=== PATIENT | female | born 1940 | race Caucasian/White ===

== ENCOUNTER 2023-05-05 10:01 | Inpatient (IN) | payer MEDICARE ==
[~2023-05-05] VITALS: Ht 157.5 cm; Wt 82.8 kg
[2023-05-05 13:30] VITALS: BP 148/67; TEMP 97.7; O2SAT 96
[2023-05-05] MEDS ORDERED: GLUCAGON INJ 1MG VIAL SC PRN (14:20)
[2023-05-05] MEDS ORDERED: GLUCOSE 4GM CHEW TABLET PO PRN (14:20)
[2023-05-05] MEDS ORDERED: oxyCODONE 5MG TAB PO PRN (14:20)
[2023-05-05] MEDS ORDERED: BISACODYL 10MG SUPP PR PRN (14:20)
[2023-05-05] MEDS ORDERED: DEXTROSE 50% 50ML SYRINGE IV PRN (14:20)
[2023-05-05] MEDS ORDERED: ACETAMINOPHEN 500 MG TAB PO SCH (16:00)
[2023-05-05] MEDS ORDERED: PACE200T PO (16:39)
[2023-05-05] MEDS ORDERED: APAP325T4 PO (16:39)
[2023-05-05] MEDS ORDERED: MELA10SU3 SL (16:39)
[2023-05-05] MEDS ORDERED: DOCU5LIQ PO (16:39)
[2023-05-05] MEDS ORDERED: METO50TA7 PO (16:39)
[2023-05-05] MEDS ORDERED: METO75TA PO (16:39)
[2023-05-05] MEDS ORDERED: ELIQ5TAB PO (16:39)
[2023-05-05] MEDS ORDERED: SENN-85 PO (16:39)
[2023-05-05] MEDS ORDERED: MOM30SS2 PO (16:39)
[2023-05-05] MEDS ORDERED: OXYC-517 PO (16:39)
[2023-05-05] MEDS ORDERED: FURO20TA2 PO (16:48)
[2023-05-05] MEDS ORDERED: HOME MED LIST COMPLETE! XX SCH (16:50)
[2023-05-05] MEDS ORDERED: oxyCODONE 5MG TAB PO ONE (17:00)
[2023-05-05] MEDS: DICLOFENAC EPOLAMINE 1.3% PATCH TOP SCH (17:07)
[2023-05-05] MEDS: LIDOCAINE 5% (LIDODERM) PATCH TD SCH (17:07)
[2023-05-05] MEDS: INSULIN LISPRO (NovoLOG) PER UNIT SC SCH (17:10)
[2023-05-05] MEDS: FUROSEMIDE 20 MG TAB PO SCH (18:32)
[2023-05-05] MEDS: GABAPENTIN 100 MG CAP PO SCH ×2 (18:32→21:43)
[2023-05-05] MEDS: ACETAMINOPHEN 325MG/10.15ML UDC PO SCH ×2 (18:32→21:00)
[2023-05-05] MEDS: REMEDY PHYTOPLEX Z-GUARD PASTE 113GM TUBE (FROM STOREROOM PRODUCT) TOP SCH ×2 (18:37→21:00)
[2023-05-05 20:00] VITALS: BP 112/56; TEMP 97.7; O2SAT 94
[2023-05-05] MEDS ORDERED: DOCUSATE SODIUM 100MG CAPSULE PO SCH (21:00)
[2023-05-05] MEDS ORDERED: INSULIN LISPRO (NovoLOG) PER UNIT SC SCH (21:00)
[2023-05-05] MEDS ORDERED: SENNA 8.6 MG TAB (SENOKOT) PO SCH (21:00)
[2023-05-05] MEDS: METOPROLOL TART 25 MG TABLET PO SCH (21:42)
[2023-05-05] MEDS: APIXABAN 5 MG TAB (ELIQUIS) PO SCH (21:43)
[2023-05-05] MEDS: traZODone 25MG PER 1/2 TABLET PO SCH (21:43)
[2023-05-05] MEDS: PANTOPRAZOLE 40MG TAB (PROTONIX) PO SCH (21:43)
[2023-05-06] MEDS: DICLOFENAC EPOLAMINE 1.3% PATCH TOP SCH ×2 (06:25→17:44)
[2023-05-06] MEDS: oxyCODONE 5MG TAB PO SCH ×3 (06:26→15:39)
[2023-05-06 06:55] VITALS: BP 122/60; TEMP 97.7; O2SAT 96
[2023-05-06 07:17] LABS: BASO # 0.1 10^3/uL (0.0-0.2); BASO % 0.8 % (0.0-1.0); EOS # 0.4 10^3/uL (0.0-0.5); EOS % 5.7 % (0.0-3.0); HEMATOCRIT 28.1 % (36.0-47.0); HEMOGLOBIN 9.3 g/dl (12.0-15.5); LYMPH % 16.2 % (24.0-44.0); MEAN CORPUSCULAR HEMOGLOBIN 33.3 pg (27.0-33.0); MEAN CORPUSCULAR HGB CONC 33.1 g/dl (32.0-36.5); MEAN CORPUSCULAR VOLUME 100.7 fl (80.0-96.0); MONO # 0.8 10^3/uL (0.0-0.8); MONO % 13.4 % (2.0-8.0); NEUTROPHILS # 3.9 10^3/uL (1.5-8.5); NEUTROPHILS % 63.3 % (36.0-66.0); PLATELET COUNT, AUTOMATED 286 10^3/uL (150-450); RED BLOOD COUNT 2.79 10^6/uL (4.00-5.40); WHITE BLOOD COUNT 6.2 10^3/uL (4.0-10.0)
[2023-05-06 07:30] LABS: ALBUMIN 1.7 G/DL (3.2-5.2); ALKALINE PHOSPHATASE 185 U/L (46-116); ALT/SGPT < 9 U/L (7.0-40); AST/SGOT 24 U/L (<34); BILIRUBIN,TOTAL 1.5 MG/DL (0.3-1.2); BLOOD UREA NITROGEN 10 MG/DL (9-23); CALCIUM LEVEL 6.7 MG/DL (8.3-10.6); CARBON DIOXIDE LEVEL 29 MMOL/L (20-31); CHLORIDE LEVEL 96 MMOL/L (98-107); CREATININE FOR GFR 0.63 MG/DL (0.55-1.30); GLOMERULAR FILTRATION RATE > 60.0 (>32); GLUCOSE, FASTING 87 MG/DL (74-106); POTASSIUM SERUM 3.7 MMOL/L (3.5-5.1); SODIUM LEVEL 131 MMOL/L (136-145); TOTAL PROTEIN 4.3 G/DL (5.7-8.2)
[2023-05-06] MEDS: INSULIN LISPRO (NovoLOG) PER UNIT SC SCH (07:30)
[2023-05-06] MEDS ORDERED: FUROSEMIDE 20 MG TAB PO SCH (09:00)
[2023-05-06] MEDS: GABAPENTIN 100 MG CAP PO SCH ×3 (09:15→21:05)
[2023-05-06] MEDS: AMIODARONE 200 MG TAB (PACERONE) PO SCH (09:15)
[2023-05-06] MEDS: PANTOPRAZOLE 40MG TAB (PROTONIX) PO SCH ×2 (09:15→21:04)
[2023-05-06] MEDS: APIXABAN 5 MG TAB (ELIQUIS) PO SCH ×2 (09:15→21:04)
[2023-05-06] MEDS: ACETAMINOPHEN 325MG/10.15ML UDC PO SCH ×4 (09:15→21:04)
[2023-05-06] MEDS: METOPROLOL TART 50 MG TAB PO SCH (09:16)
[2023-05-06] MEDS: FUROSEMIDE 20 MG TAB PO SCH ×2 (09:16→17:42)
[2023-05-06] MEDS: REMEDY PHYTOPLEX Z-GUARD PASTE 113GM TUBE (FROM STOREROOM PRODUCT) TOP SCH ×4 (09:18→21:00)
[2023-05-06] MEDS: LIDOCAINE 5% (LIDODERM) PATCH TD SCH (09:18)
[2023-05-06 14:00] VITALS: BP 100/51; TEMP 98.5; O2SAT 93
[2023-05-06 19:28] VITALS: BP 104/55; TEMP 97.6; O2SAT 95
[2023-05-06] MEDS: METOPROLOL TART 25 MG TABLET PO SCH (21:00)
[2023-05-06] MEDS: RAMELTEON 8 MG TAB (ROZEREM) PO PRN (21:04)
[2023-05-06] MEDS: traZODone 25MG PER 1/2 TABLET PO SCH (21:04)
[2023-05-07 05:17] VITALS: BP 127/59; TEMP 97.2; O2SAT 97
[2023-05-07] MEDS: DICLOFENAC EPOLAMINE 1.3% PATCH TOP SCH ×2 (06:02→18:12)
[2023-05-07] MEDS: oxyCODONE 5MG TAB PO SCH ×3 (08:08→16:16)
[2023-05-07] MEDS: APIXABAN 5 MG TAB (ELIQUIS) PO SCH ×2 (08:09→20:46)
[2023-05-07] MEDS: GABAPENTIN 100 MG CAP PO SCH ×3 (08:09→20:46)
[2023-05-07] MEDS: FUROSEMIDE 20 MG TAB PO SCH ×2 (08:09→16:16)
[2023-05-07] MEDS: PANTOPRAZOLE 40MG TAB (PROTONIX) PO SCH ×2 (08:10→20:47)
[2023-05-07] MEDS: AMIODARONE 200 MG TAB (PACERONE) PO SCH (08:10)
[2023-05-07] MEDS: METOPROLOL TART 50 MG TAB PO SCH (08:11)
[2023-05-07] MEDS: ACETAMINOPHEN 325MG/10.15ML UDC PO SCH ×4 (08:11→20:48)
[2023-05-07] MEDS: LIDOCAINE 5% (LIDODERM) PATCH TD SCH (08:12)
[2023-05-07] MEDS: REMEDY PHYTOPLEX Z-GUARD PASTE 113GM TUBE (FROM STOREROOM PRODUCT) TOP SCH ×4 (08:12→21:00)
[2023-05-07 14:00] VITALS: BP 113/56; TEMP 99.1; O2SAT 96
[2023-05-07] MEDS: CALCIUM CARBONATE 500 MG CHEW U/D PO PRN (16:36)
[2023-05-07] MEDS ORDERED: MOM 30ML SUSPENSION UDC PO ONE (16:55)
[2023-05-07 20:00] VITALS: BP 120/80; TEMP 98.7; O2SAT 94
[2023-05-07] MEDS ORDERED: SIMETHICONE 80MG CHEW TAB PO ONE (20:00)
[2023-05-07] MEDS: traZODone 25MG PER 1/2 TABLET PO SCH (20:46)
[2023-05-07] MEDS: METOPROLOL TART 25 MG TABLET PO SCH (20:47)
[2023-05-07] MEDS: RAMELTEON 8 MG TAB (ROZEREM) PO PRN (20:50)
[2023-05-08] MEDS: DICLOFENAC EPOLAMINE 1.3% PATCH TOP SCH ×2 (05:29→18:14)
[2023-05-08 06:00] VITALS: BP 115/59; TEMP 97.5; O2SAT 95
[2023-05-08] MEDS: oxyCODONE 5MG TAB PO SCH ×3 (06:35→14:07)
[2023-05-08] MEDS: FUROSEMIDE 20 MG TAB PO SCH ×2 (08:55→18:13)
[2023-05-08] MEDS: APIXABAN 5 MG TAB (ELIQUIS) PO SCH ×2 (08:55→21:36)
[2023-05-08] MEDS: METOPROLOL TART 50 MG TAB PO SCH (08:55)
[2023-05-08] MEDS: GABAPENTIN 100 MG CAP PO SCH ×3 (08:56→21:36)
[2023-05-08] MEDS: AMIODARONE 200 MG TAB (PACERONE) PO SCH (08:56)
[2023-05-08] MEDS: ACETAMINOPHEN 325MG/10.15ML UDC PO SCH ×4 (08:56→21:36)
[2023-05-08] MEDS: PANTOPRAZOLE 40MG TAB (PROTONIX) PO SCH ×2 (08:56→21:36)
[2023-05-08] MEDS: REMEDY PHYTOPLEX Z-GUARD PASTE 113GM TUBE (FROM STOREROOM PRODUCT) TOP SCH ×4 (08:57→21:37)
[2023-05-08] MEDS: LIDOCAINE 5% (LIDODERM) PATCH TD SCH (08:57)
[2023-05-08] MEDS ORDERED: MIRALAX *UNIT DOSE* 17GM PACKET PO PRN (12:15)
[2023-05-08 14:00] VITALS: BP 117/56; TEMP 98.1; O2SAT 95
[2023-05-08 20:00] VITALS: BP 99/53; TEMP 97.8; O2SAT 95
[2023-05-08] MEDS: METOPROLOL TART 25 MG TABLET PO SCH (21:00)
[2023-05-08] MEDS: RAMELTEON 8 MG TAB (ROZEREM) PO PRN (21:36)
[2023-05-08] MEDS: traZODone 25MG PER 1/2 TABLET PO SCH (21:36)
[2023-05-08] MEDS: SENNA 8.6 MG TAB (SENOKOT) PO SCH (21:36)
[2023-05-08] MEDS: DOCUSATE SOD LIQ 100MG/10ML UDC PO SCH (21:37)
[2023-05-09] MEDS: DICLOFENAC EPOLAMINE 1.3% PATCH TOP SCH ×2 (05:41→18:15)
[2023-05-09 06:00] VITALS: BP 126/61; TEMP 97.6; O2SAT 95
[2023-05-09] MEDS: oxyCODONE 5MG TAB PO SCH ×3 (06:45→16:02)
[2023-05-09] MEDS: PANTOPRAZOLE 40MG TAB (PROTONIX) PO SCH ×2 (09:10→20:45)
[2023-05-09] MEDS: DOCUSATE SOD LIQ 100MG/10ML UDC PO SCH ×2 (09:10→20:44)
[2023-05-09] MEDS: AMIODARONE 200 MG TAB (PACERONE) PO SCH (09:10)
[2023-05-09] MEDS: GABAPENTIN 100 MG CAP PO SCH ×3 (09:10→20:45)
[2023-05-09] MEDS: APIXABAN 5 MG TAB (ELIQUIS) PO SCH ×2 (09:10→20:45)
[2023-05-09] MEDS: FUROSEMIDE 20 MG TAB PO SCH (09:10)
[2023-05-09] MEDS: METOPROLOL TART 50 MG TAB PO SCH (09:11)
[2023-05-09] MEDS: ACETAMINOPHEN 325MG/10.15ML UDC PO SCH ×4 (09:11→20:44)
[2023-05-09] MEDS: REMEDY PHYTOPLEX Z-GUARD PASTE 113GM TUBE (FROM STOREROOM PRODUCT) TOP SCH ×4 (09:12→20:45)
[2023-05-09] MEDS: LIDOCAINE 5% (LIDODERM) PATCH TD SCH (09:12)
[2023-05-09 13:19] LABS: BASO # 0.1 10^3/uL (0.0-0.2); BASO % 0.7 % (0.0-1.0); EOS # 0.4 10^3/uL (0.0-0.5); EOS % 5.7 % (0.0-3.0); HEMATOCRIT 29.7 % (36.0-47.0); HEMOGLOBIN 9.7 g/dl (12.0-15.5); LYMPH # 1.1 10^3/uL (1.5-5.0); LYMPH % 14.5 % (24.0-44.0); MEAN CORPUSCULAR HEMOGLOBIN 33.4 pg (27.0-33.0); MEAN CORPUSCULAR HGB CONC 32.7 g/dl (32.0-36.5); MEAN CORPUSCULAR VOLUME 102.4 fl (80.0-96.0); MONO # 0.8 10^3/uL (0.0-0.8); MONO % 11.3 % (2.0-8.0); NEUTROPHILS # 4.9 10^3/uL (1.5-8.5); NEUTROPHILS % 67.3 % (36.0-66.0); PLATELET COUNT, AUTOMATED 353 10^3/uL (150-450); WHITE BLOOD COUNT 7.3 10^3/uL (4.0-10.0)
[2023-05-09 13:39] LABS: ALBUMIN 1.5 G/DL (3.2-5.2); ALKALINE PHOSPHATASE 196 U/L (46-116); ALT/SGPT < 9 U/L (7.0-40); AST/SGOT 29 U/L (<34); BILIRUBIN,TOTAL 0.9 MG/DL (0.3-1.2); BLOOD UREA NITROGEN 12 MG/DL (9-23); CALCIUM LEVEL 6.9 MG/DL (8.3-10.6); CARBON DIOXIDE LEVEL 30 MMOL/L (20-31); CHLORIDE LEVEL 94 MMOL/L (98-107); CREATININE FOR GFR 0.63 MG/DL (0.55-1.30); GLOMERULAR FILTRATION RATE > 60.0 (>32); GLUCOSE, FASTING 111 MG/DL (74-106); POTASSIUM SERUM 3.6 MMOL/L (3.5-5.1); SODIUM LEVEL 128 MMOL/L (136-145); TOTAL PROTEIN 4.2 G/DL (5.7-8.2)
[2023-05-09 13:41] LABS: ERYTHROCYTE SEDIMENTATION RATE 60 mm/hr (0-30)
[2023-05-09 14:00] VITALS: TEMP 98.4; O2SAT 96
[2023-05-09 20:00] VITALS: BP 106/51; TEMP 98.2; O2SAT 94
[2023-05-09] MEDS: METOPROLOL TART 25 MG TABLET PO SCH (20:45)
[2023-05-09] MEDS: traZODone 25MG PER 1/2 TABLET PO SCH (20:45)
[2023-05-09] MEDS: SENNA 8.6 MG TAB (SENOKOT) PO SCH (20:45)
[2023-05-10 06:00] VITALS: BP 129/60; TEMP 98; O2SAT 95
[2023-05-10] MEDS: oxyCODONE 5MG TAB PO SCH ×3 (06:28→21:08)
[2023-05-10] MEDS: DICLOFENAC EPOLAMINE 1.3% PATCH TOP SCH ×2 (06:28→18:00)
[2023-05-10] MEDS: DOCUSATE SOD LIQ 100MG/10ML UDC PO SCH ×2 (09:33→20:57)
[2023-05-10] MEDS: APIXABAN 5 MG TAB (ELIQUIS) PO SCH ×2 (09:34→21:08)
[2023-05-10] MEDS: ACETAMINOPHEN 325MG/10.15ML UDC PO SCH ×4 (09:34→21:09)
[2023-05-10] MEDS: GABAPENTIN 100 MG CAP PO SCH ×3 (09:34→21:07)
[2023-05-10] MEDS: LIDOCAINE 5% (LIDODERM) PATCH TD SCH (09:34)
[2023-05-10] MEDS: PANTOPRAZOLE 40MG TAB (PROTONIX) PO SCH ×2 (09:35→21:08)
[2023-05-10] MEDS: REMEDY PHYTOPLEX Z-GUARD PASTE 113GM TUBE (FROM STOREROOM PRODUCT) TOP SCH ×4 (09:35→21:09)
[2023-05-10] MEDS: METOPROLOL TART 50 MG TAB PO SCH (09:35)
[2023-05-10] MEDS: AMIODARONE 200 MG TAB (PACERONE) PO SCH (09:35)
[2023-05-10] MEDS ORDERED: VARIBAR NECTAR 40% w/v 240ML SUSP BTL As Ordered ONE (13:47)
[2023-05-10] MEDS ORDERED: VARIBAR PUDDING 40% w/v 230ML TUBE As Ordered ONE (13:47)
[2023-05-10] MEDS ORDERED: E-Z-PAQUE 96% w/w SUSP 176GM BTL As Ordered ONE (13:48)
[2023-05-10] MEDS ORDERED: BARIUM SULFATE 700 MG TABLET (E-Z-DISK) As Ordered ONE (13:48)
[2023-05-10] MEDS ORDERED: PILL CUTTER 1 EACH XX PRN (13:55)
[2023-05-10 14:00] VITALS: BP 132/62; TEMP 97.7; O2SAT 97
[2023-05-10] MEDS ORDERED: FLEET ENEMA PR ONE (15:45)
[2023-05-10] MEDS: MIRALAX *UNIT DOSE* 17GM PACKET PO SCH (16:41)
[2023-05-10 16:42] LABS: BLOOD UREA NITROGEN 12 MG/DL (9-23); CALCIUM LEVEL 6.9 MG/DL (8.3-10.6); CARBON DIOXIDE LEVEL 31 MMOL/L (20-31); CHLORIDE LEVEL 91 MMOL/L (98-107); CREATININE FOR GFR 0.63 MG/DL (0.55-1.30); GLOMERULAR FILTRATION RATE > 60.0 (>32); GLUCOSE, FASTING 103 MG/DL (74-106); POTASSIUM SERUM 4.1 MMOL/L (3.5-5.1); SODIUM LEVEL 124 MMOL/L (136-145)
[2023-05-10] MEDS: SODIUM CHLORIDE 1 GM TAB PO SCH (18:00)
[2023-05-10 20:00] VITALS: BP 130/61; TEMP 98.1; O2SAT 97
[2023-05-10] MEDS: SENNA 8.6 MG TAB (SENOKOT) PO SCH (20:57)
[2023-05-10] MEDS: METOPROLOL TART 25 MG TABLET PO SCH (21:00)
[2023-05-10 21:20] VITALS: BP 108/50
[2023-05-11 06:00] VITALS: BP 137/64; TEMP 97.7; O2SAT 97
[2023-05-11] MEDS: DICLOFENAC EPOLAMINE 1.3% PATCH TOP SCH ×2 (06:22→17:46)
[2023-05-11] MEDS: oxyCODONE 5MG TAB PO SCH ×3 (06:22→20:45)
[2023-05-11 07:26] LABS: BLOOD UREA NITROGEN 11 MG/DL (9-23); CALCIUM LEVEL 7.2 MG/DL (8.3-10.6); CARBON DIOXIDE LEVEL 32 MMOL/L (20-31); CHLORIDE LEVEL 92 MMOL/L (98-107); CREATININE FOR GFR 0.59 MG/DL (0.55-1.30); GLOMERULAR FILTRATION RATE > 60.0 (>32); GLUCOSE, FASTING 78 MG/DL (74-106); POTASSIUM SERUM 4.4 MMOL/L (3.5-5.1); SODIUM LEVEL 127 MMOL/L (136-145)
[2023-05-11] MEDS: AMIODARONE 200 MG TAB (PACERONE) PO SCH (08:05)
[2023-05-11] MEDS: APIXABAN 5 MG TAB (ELIQUIS) PO SCH ×2 (08:05→20:46)
[2023-05-11] MEDS: METOPROLOL TART 50 MG TAB PO SCH (08:05)
[2023-05-11] MEDS: PANTOPRAZOLE 40MG TAB (PROTONIX) PO SCH (08:05)
[2023-05-11] MEDS: SODIUM CHLORIDE 1 GM TAB PO SCH (08:05)
[2023-05-11] MEDS: GABAPENTIN 100 MG CAP PO SCH ×3 (08:06→20:44)
[2023-05-11] MEDS: LIDOCAINE 5% (LIDODERM) PATCH TD SCH (08:06)
[2023-05-11] MEDS: REMEDY PHYTOPLEX Z-GUARD PASTE 113GM TUBE (FROM STOREROOM PRODUCT) TOP SCH ×4 (08:07→20:46)
[2023-05-11] MEDS: ACETAMINOPHEN 325MG/10.15ML UDC PO SCH ×4 (08:07→20:43)
[2023-05-11] MEDS: MIRALAX *UNIT DOSE* 17GM PACKET PO SCH (08:08)
[2023-05-11] MEDS: DOCUSATE SOD LIQ 100MG/10ML UDC PO SCH ×2 (08:08→20:43)
[2023-05-11] MEDS ORDERED: TOLVAPTAN 15 MG TAB (SAMSCA) PO ONE (13:00)
[2023-05-11 14:00] VITALS: BP 126/53; TEMP 98; O2SAT 96
[2023-05-11] MEDS: SIMETHICONE 80MG CHEW TAB PO SCH ×2 (17:45→20:45)
[2023-05-11 20:00] VITALS: BP 117/59; TEMP 97.9; O2SAT 95
[2023-05-11] MEDS: OMEPRAZOLE 20MG CAP PO SCH (20:44)
[2023-05-11] MEDS: METOPROLOL TART 25 MG TABLET PO SCH (20:46)
[2023-05-11] MEDS: SENNA 8.6 MG TAB (SENOKOT) PO SCH (20:46)
[2023-05-12 05:35] VITALS: BP 142/64; TEMP 98.4; O2SAT 96
[2023-05-12] MEDS: DICLOFENAC EPOLAMINE 1.3% PATCH TOP SCH ×2 (06:39→17:03)
[2023-05-12] MEDS: oxyCODONE 5MG TAB PO SCH ×3 (06:40→21:58)
[2023-05-12] MEDS: ACETAMINOPHEN 325MG/10.15ML UDC PO SCH ×4 (09:06→21:59)
[2023-05-12] MEDS: APIXABAN 5 MG TAB (ELIQUIS) PO SCH ×2 (09:06→21:59)
[2023-05-12] MEDS: LIDOCAINE 5% (LIDODERM) PATCH TD SCH (09:06)
[2023-05-12] MEDS: AMIODARONE 200 MG TAB (PACERONE) PO SCH (09:06)
[2023-05-12] MEDS: DOCUSATE SOD LIQ 100MG/10ML UDC PO SCH ×2 (09:06→22:00)
[2023-05-12] MEDS: SIMETHICONE 80MG CHEW TAB PO SCH ×3 (09:06→21:59)
[2023-05-12] MEDS: MIRALAX *UNIT DOSE* 17GM PACKET PO SCH (09:06)
[2023-05-12] MEDS: GABAPENTIN 100 MG CAP PO SCH ×3 (09:07→22:00)
[2023-05-12] MEDS: METOPROLOL TART 50 MG TAB PO SCH (09:07)
[2023-05-12] MEDS: OMEPRAZOLE 20MG CAP PO SCH ×2 (09:07→22:00)
[2023-05-12] MEDS: REMEDY PHYTOPLEX Z-GUARD PASTE 113GM TUBE (FROM STOREROOM PRODUCT) TOP SCH ×4 (09:07→22:00)
[2023-05-12 09:21] LABS: BLOOD UREA NITROGEN 11 MG/DL (9-23); CALCIUM LEVEL 6.9 MG/DL (8.3-10.6); CARBON DIOXIDE LEVEL 29 MMOL/L (20-31); CHLORIDE LEVEL 93 MMOL/L (98-107); GLOMERULAR FILTRATION RATE > 60.0 (>32); GLUCOSE, FASTING 114 MG/DL (74-106); POTASSIUM SERUM 4.1 MMOL/L (3.5-5.1); SODIUM LEVEL 127 MMOL/L (136-145)
[2023-05-12] MEDS: TORSEMIDE 20 MG TAB PO SCH (12:11)
[2023-05-12 14:00] VITALS: BP 131/63; TEMP 97.5; O2SAT 97
[2023-05-12 20:00] VITALS: BP 125/57; TEMP 98.1; O2SAT 96
[2023-05-12] MEDS: METOPROLOL TART 25 MG TABLET PO SCH (21:59)
[2023-05-12] MEDS: SENNA 8.6 MG TAB (SENOKOT) PO SCH (21:59)
[2023-05-13] MEDS: REMEDY PHYTOPLEX Z-GUARD PASTE 113GM TUBE (FROM STOREROOM PRODUCT) TOP SCH ×6 (01:00→20:26)
[2023-05-13] MEDS: DICLOFENAC EPOLAMINE 1.3% PATCH TOP SCH ×2 (05:06→18:08)
[2023-05-13 06:11] VITALS: BP 137/65; TEMP 98.4; O2SAT 94
[2023-05-13] MEDS: oxyCODONE 5MG TAB PO SCH ×3 (06:29→20:31)
[2023-05-13 06:55] LABS: BASO # 0.1 10^3/uL (0.0-0.2); BASO % 0.7 % (0.0-1.0); EOS # 0.3 10^3/uL (0.0-0.5); EOS % 3.6 % (0.0-3.0); HEMATOCRIT 31.5 % (36.0-47.0); HEMOGLOBIN 10.2 g/dl (12.0-15.5); LYMPH # 1.6 10^3/uL (1.5-5.0); LYMPH % 17.8 % (24.0-44.0); MEAN CORPUSCULAR HEMOGLOBIN 32.7 pg (27.0-33.0); MEAN CORPUSCULAR HGB CONC 32.4 g/dl (32.0-36.5); MONO % 11.6 % (2.0-8.0); NEUTROPHILS # 5.7 10^3/uL (1.5-8.5); NEUTROPHILS % 65.5 % (36.0-66.0); PLATELET COUNT, AUTOMATED 439 10^3/uL (150-450); RED BLOOD COUNT 3.12 10^6/uL (4.00-5.40); WHITE BLOOD COUNT 8.7 10^3/uL (4.0-10.0)
[2023-05-13 07:34] LABS: BLOOD UREA NITROGEN 11 MG/DL (9-23); CALCIUM LEVEL 6.7 MG/DL (8.3-10.6); CARBON DIOXIDE LEVEL 32 MMOL/L (20-31); CHLORIDE LEVEL 96 MMOL/L (98-107); CREATININE FOR GFR 0.65 MG/DL (0.55-1.30); GLOMERULAR FILTRATION RATE > 60.0 (>32); GLUCOSE, FASTING 77 MG/DL (74-106); SODIUM LEVEL 130 MMOL/L (136-145)
[2023-05-13] MEDS: DOCUSATE SOD LIQ 100MG/10ML UDC PO SCH ×2 (09:00→20:15)
[2023-05-13] MEDS: MIRALAX *UNIT DOSE* 17GM PACKET PO SCH (09:00)
[2023-05-13] MEDS: GABAPENTIN 100 MG CAP PO SCH ×3 (09:38→20:24)
[2023-05-13] MEDS: OMEPRAZOLE 20MG CAP PO SCH ×2 (09:38→20:25)
[2023-05-13] MEDS: APIXABAN 5 MG TAB (ELIQUIS) PO SCH ×2 (09:38→20:26)
[2023-05-13] MEDS: ACETAMINOPHEN 325MG/10.15ML UDC PO SCH (09:38)
[2023-05-13] MEDS: SIMETHICONE 80MG CHEW TAB PO SCH ×3 (09:38→20:25)
[2023-05-13] MEDS: LIDOCAINE 5% (LIDODERM) PATCH TD SCH (09:39)
[2023-05-13] MEDS: METOPROLOL TART 50 MG TAB PO SCH (09:39)
[2023-05-13] MEDS: TORSEMIDE 20 MG TAB PO SCH (09:39)
[2023-05-13] MEDS: AMIODARONE 200 MG TAB (PACERONE) PO SCH (09:40)
[2023-05-13] MEDS: ACETAMINOPHEN 500 MG TAB PO SCH ×2 (15:00→20:25)
[2023-05-13 20:10] VITALS: BP 123/68; TEMP 98; O2SAT 93
[2023-05-13] MEDS: SENNA 8.6 MG TAB (SENOKOT) PO SCH (20:15)
[2023-05-13] MEDS: METOPROLOL TART 25 MG TABLET PO SCH (20:24)
[2023-05-13] MEDS: CALCIUM CARBONATE 500 MG CHEW U/D PO PRN (20:25)
[2023-05-14] MEDS: REMEDY PHYTOPLEX Z-GUARD PASTE 113GM TUBE (FROM STOREROOM PRODUCT) TOP SCH ×6 (01:01→20:42)
[2023-05-14 05:26] VITALS: BP 144/56; TEMP 97.4; O2SAT 95
[2023-05-14] MEDS: DICLOFENAC EPOLAMINE 1.3% PATCH TOP SCH ×2 (05:26→17:10)
[2023-05-14] MEDS: oxyCODONE 5MG TAB PO SCH ×3 (06:52→20:41)
[2023-05-14] MEDS: MIRALAX *UNIT DOSE* 17GM PACKET PO SCH (07:39)
[2023-05-14] MEDS: DOCUSATE SOD LIQ 100MG/10ML UDC PO SCH ×2 (07:39→19:01)
[2023-05-14] MEDS: AMIODARONE 200 MG TAB (PACERONE) PO SCH (09:18)
[2023-05-14] MEDS: SIMETHICONE 80MG CHEW TAB PO SCH ×3 (09:18→20:41)
[2023-05-14] MEDS: OMEPRAZOLE 20MG CAP PO SCH ×2 (09:18→20:41)
[2023-05-14] MEDS: ACETAMINOPHEN 500 MG TAB PO SCH ×3 (09:18→20:42)
[2023-05-14] MEDS: METOPROLOL TART 50 MG TAB PO SCH (09:18)
[2023-05-14] MEDS: GABAPENTIN 100 MG CAP PO SCH ×3 (09:19→20:41)
[2023-05-14] MEDS: APIXABAN 5 MG TAB (ELIQUIS) PO SCH ×2 (09:19→20:41)
[2023-05-14] MEDS: LIDOCAINE 5% (LIDODERM) PATCH TD SCH (09:20)
[2023-05-14] MEDS: TORSEMIDE 20 MG TAB PO SCH (09:20)
[2023-05-14 14:00] VITALS: BP 122/60; TEMP 98.2; O2SAT 92
[2023-05-14] MEDS: SENNA 8.6 MG TAB (SENOKOT) PO SCH (19:01)
[2023-05-14 20:00] VITALS: BP 119/56; TEMP 98.1; O2SAT 96
[2023-05-14] MEDS: METOPROLOL TART 25 MG TABLET PO SCH (20:42)
[2023-05-15] MEDS: REMEDY PHYTOPLEX Z-GUARD PASTE 113GM TUBE (FROM STOREROOM PRODUCT) TOP SCH ×7 (01:52→21:00)
[2023-05-15 06:00] VITALS: BP 105/56; TEMP 98.2; O2SAT 96
[2023-05-15] MEDS: oxyCODONE 5MG TAB PO SCH ×3 (06:37→20:25)
[2023-05-15] MEDS: DICLOFENAC EPOLAMINE 1.3% PATCH TOP SCH ×2 (06:37→18:09)
[2023-05-15 07:00] LABS: ALBUMIN 1.5 G/DL (3.2-5.2); BLOOD UREA NITROGEN 14 MG/DL (9-23); CALCIUM LEVEL 6.9 MG/DL (8.3-10.6); CARBON DIOXIDE LEVEL 33 MMOL/L (20-31); CHLORIDE LEVEL 95 MMOL/L (98-107); CREATININE FOR GFR 0.76 MG/DL (0.55-1.30); GLOMERULAR FILTRATION RATE > 60.0 (>32); GLUCOSE, FASTING 76 MG/DL (74-106); MAGNESIUM LEVEL 1.4 MG/DL (1.8-2.4); PHOSPHORUS LEVEL 3.9 MG/DL (2.4-5.1); POTASSIUM SERUM 3.9 MMOL/L (3.5-5.1); SODIUM LEVEL 132 MMOL/L (136-145)
[2023-05-15] MEDS ORDERED: MAG SULF 1GM/100ML (MAG RUN) 1 GM in IV 1 EA IV ONE (08:00)
[2023-05-15] MEDS: LIDOCAINE 5% (LIDODERM) PATCH TD SCH (08:59)
[2023-05-15] MEDS: MIRALAX *UNIT DOSE* 17GM PACKET PO SCH (09:00)
[2023-05-15] MEDS: SIMETHICONE 80MG CHEW TAB PO SCH ×3 (09:00→20:24)
[2023-05-15] MEDS: GABAPENTIN 100 MG CAP PO SCH ×3 (09:00→20:23)
[2023-05-15] MEDS: AMIODARONE 200 MG TAB (PACERONE) PO SCH (09:00)
[2023-05-15] MEDS: METOPROLOL TART 50 MG TAB PO SCH (09:00)
[2023-05-15] MEDS: DOCUSATE SOD LIQ 100MG/10ML UDC PO SCH ×2 (09:00→20:23)
[2023-05-15] MEDS: APIXABAN 5 MG TAB (ELIQUIS) PO SCH ×2 (09:01→20:24)
[2023-05-15] MEDS: OMEPRAZOLE 20MG CAP PO SCH ×2 (09:01→20:25)
[2023-05-15] MEDS: TORSEMIDE 20 MG TAB PO SCH (09:01)
[2023-05-15] MEDS: ACETAMINOPHEN 500 MG TAB PO SCH ×3 (09:01→20:24)
[2023-05-15] MEDS: MAGNESIUM OXIDE 400MG TAB (MAG-OX) PO SCH ×2 (09:07→20:24)
[2023-05-15 13:56] VITALS: BP 118/57; TEMP 98; O2SAT 95
[2023-05-15 20:00] VITALS: BP 117/56; TEMP 98.1; O2SAT 95
[2023-05-15] MEDS: SENNA 8.6 MG TAB (SENOKOT) PO SCH (20:25)
[2023-05-15] MEDS: METOPROLOL TART 25 MG TABLET PO SCH (20:29)
[2023-05-16] MEDS: REMEDY PHYTOPLEX Z-GUARD PASTE 113GM TUBE (FROM STOREROOM PRODUCT) TOP SCH ×6 (01:15→21:00)
[2023-05-16 06:00] VITALS: BP 131/59; TEMP 97.7; O2SAT 95
[2023-05-16] MEDS: DICLOFENAC EPOLAMINE 1.3% PATCH TOP SCH ×2 (06:29→16:47)
[2023-05-16] MEDS: oxyCODONE 5MG TAB PO SCH ×3 (06:30→20:53)
[2023-05-16 07:00] LABS: BLOOD UREA NITROGEN 16 MG/DL (9-23); CARBON DIOXIDE LEVEL 31 MMOL/L (20-31); CHLORIDE LEVEL 94 MMOL/L (98-107); CREATININE FOR GFR 0.76 MG/DL (0.55-1.30); GLOMERULAR FILTRATION RATE > 60.0 (>32); GLUCOSE, FASTING 92 MG/DL (74-106); MAGNESIUM LEVEL 1.4 MG/DL (1.8-2.4); POTASSIUM SERUM 3.6 MMOL/L (3.5-5.1); SODIUM LEVEL 129 MMOL/L (136-145)
[2023-05-16] MEDS ORDERED: POTASSIUM CHLORIDE 10MEQ SR TABLET PO ONE (08:15)
[2023-05-16] MEDS: OMEPRAZOLE 20MG CAP PO SCH ×2 (10:15→20:51)
[2023-05-16] MEDS: GABAPENTIN 100 MG CAP PO SCH ×3 (10:15→20:51)
[2023-05-16] MEDS: TORSEMIDE 20 MG TAB PO SCH (10:16)
[2023-05-16] MEDS: METOPROLOL TART 50 MG TAB PO SCH (10:16)
[2023-05-16] MEDS: SPIRONOLACTONE 25 MG TAB PO SCH (10:16)
[2023-05-16] MEDS: MAGNESIUM OXIDE 400MG TAB (MAG-OX) PO SCH ×2 (10:16→20:52)
[2023-05-16] MEDS: APIXABAN 5 MG TAB (ELIQUIS) PO SCH ×2 (10:16→20:53)
[2023-05-16] MEDS: AMIODARONE 200 MG TAB (PACERONE) PO SCH (10:17)
[2023-05-16] MEDS: ACETAMINOPHEN 500 MG TAB PO SCH ×3 (10:17→20:52)
[2023-05-16] MEDS: SIMETHICONE 80MG CHEW TAB PO SCH ×3 (10:17→20:51)
[2023-05-16] MEDS: LIDOCAINE 5% (LIDODERM) PATCH TD SCH (10:18)
[2023-05-16] MEDS: MIRALAX *UNIT DOSE* 17GM PACKET PO SCH (10:19)
[2023-05-16] MEDS: DOCUSATE SOD LIQ 100MG/10ML UDC PO SCH ×2 (10:19→21:00)
[2023-05-16] MEDS ORDERED: MAG SULF 1GM/100ML (MAG RUN) 1 GM in IV 1 EA IV ONE (12:15)
[2023-05-16 14:00] VITALS: BP 130/58; TEMP 98.1; O2SAT 91
[2023-05-16 20:15] VITALS: BP 103/58; TEMP 98; O2SAT 94
[2023-05-16] MEDS: METOPROLOL TART 25 MG TABLET PO SCH (21:00)
[2023-05-16] MEDS: SENNA 8.6 MG TAB (SENOKOT) PO SCH (21:00)
[2023-05-17] MEDS: REMEDY PHYTOPLEX Z-GUARD PASTE 113GM TUBE (FROM STOREROOM PRODUCT) TOP SCH ×6 (01:57→20:49)
[2023-05-17 05:45] VITALS: BP 130/62; TEMP 98.1; O2SAT 95
[2023-05-17] MEDS: DICLOFENAC EPOLAMINE 1.3% PATCH TOP SCH ×2 (06:12→18:13)
[2023-05-17] MEDS: oxyCODONE 5MG TAB PO SCH ×3 (06:12→20:47)
[2023-05-17 07:14] LABS: BASO # 0.1 10^3/uL (0.0-0.2); BASO % 0.5 % (0.0-1.0); EOS # 0.2 10^3/uL (0.0-0.5); HEMATOCRIT 29.1 % (36.0-47.0); HEMOGLOBIN 9.6 g/dl (12.0-15.5); LYMPH # 1.6 10^3/uL (1.5-5.0); LYMPH % 16.3 % (24.0-44.0); MEAN CORPUSCULAR HEMOGLOBIN 33.2 pg (27.0-33.0); MEAN CORPUSCULAR VOLUME 100.7 fl (80.0-96.0); MONO # 0.8 10^3/uL (0.0-0.8); MONO % 8.2 % (2.0-8.0); NEUTROPHILS # 7.2 10^3/uL (1.5-8.5); NEUTROPHILS % 72.2 % (36.0-66.0); PLATELET COUNT, AUTOMATED 350 10^3/uL (150-450); RED BLOOD COUNT 2.89 10^6/uL (4.00-5.40)
[2023-05-17 07:37] LABS: BLOOD UREA NITROGEN 23 MG/DL (9-23); CALCIUM LEVEL 6.8 MG/DL (8.3-10.6); CARBON DIOXIDE LEVEL 32 MMOL/L (20-31); CHLORIDE LEVEL 93 MMOL/L (98-107); CREATININE FOR GFR 0.74 MG/DL (0.55-1.30); GLOMERULAR FILTRATION RATE > 60.0 (>32); GLUCOSE, FASTING 88 MG/DL (74-106); SODIUM LEVEL 130 MMOL/L (136-145)
[2023-05-17 07:59] LABS: MAGNESIUM LEVEL 1.7 MG/DL (1.8-2.4)
[2023-05-17] MEDS: LIDOCAINE 5% (LIDODERM) PATCH TD SCH (09:54)
[2023-05-17] MEDS: MIRALAX *UNIT DOSE* 17GM PACKET PO SCH (09:54)
[2023-05-17] MEDS: AMIODARONE 200 MG TAB (PACERONE) PO SCH (09:55)
[2023-05-17] MEDS: APIXABAN 5 MG TAB (ELIQUIS) PO SCH ×2 (09:55→20:46)
[2023-05-17] MEDS: MAGNESIUM OXIDE 400MG TAB (MAG-OX) PO SCH ×3 (09:55→20:47)
[2023-05-17] MEDS: DOCUSATE SOD LIQ 100MG/10ML UDC PO SCH ×2 (09:55→21:00)
[2023-05-17] MEDS: SIMETHICONE 80MG CHEW TAB PO SCH ×3 (09:55→20:46)
[2023-05-17] MEDS: SPIRONOLACTONE 25 MG TAB PO SCH (09:55)
[2023-05-17] MEDS: OMEPRAZOLE 20MG CAP PO SCH ×2 (09:55→20:46)
[2023-05-17] MEDS: TORSEMIDE 20 MG TAB PO SCH (09:55)
[2023-05-17] MEDS: GABAPENTIN 100 MG CAP PO SCH ×3 (09:55→20:46)
[2023-05-17] MEDS: METOPROLOL TART 50 MG TAB PO SCH (09:56)
[2023-05-17] MEDS: ACETAMINOPHEN 500 MG TAB PO SCH ×3 (09:57→20:47)
[2023-05-17] MEDS: AUGMENTIN 875 MG TAB PO SCH ×2 (13:52→20:46)
[2023-05-17 14:00] VITALS: BP 128/60; TEMP 98; O2SAT 95
[2023-05-17 15:51] VITALS: O2SAT 93
[2023-05-17 20:00] VITALS: BP 135/63; TEMP 97.7; O2SAT 93
[2023-05-17] MEDS: METOPROLOL TART 25 MG TABLET PO SCH (20:49)
[2023-05-17] MEDS: SENNA 8.6 MG TAB (SENOKOT) PO SCH (21:00)
[2023-05-18] MEDS: REMEDY PHYTOPLEX Z-GUARD PASTE 113GM TUBE (FROM STOREROOM PRODUCT) TOP SCH ×6 (01:42→20:33)
[2023-05-18 06:00] VITALS: BP 114/56; TEMP 97.6; O2SAT 93
[2023-05-18] MEDS: DICLOFENAC EPOLAMINE 1.3% PATCH TOP SCH ×2 (06:26→17:14)
[2023-05-18] MEDS: oxyCODONE 5MG TAB PO SCH ×3 (06:27→20:30)
[2023-05-18] MEDS: MIRALAX *UNIT DOSE* 17GM PACKET PO SCH (09:00)
[2023-05-18] MEDS: DOCUSATE SOD LIQ 100MG/10ML UDC PO SCH ×2 (09:00→20:17)
[2023-05-18] MEDS: LIDOCAINE 5% (LIDODERM) PATCH TD SCH (09:44)
[2023-05-18] MEDS: APIXABAN 5 MG TAB (ELIQUIS) PO SCH ×2 (09:45→20:30)
[2023-05-18] MEDS: MAGNESIUM OXIDE 400MG TAB (MAG-OX) PO SCH ×3 (09:45→20:30)
[2023-05-18] MEDS: OMEPRAZOLE 20MG CAP PO SCH ×2 (09:45→20:31)
[2023-05-18] MEDS: AMIODARONE 200 MG TAB (PACERONE) PO SCH (09:45)
[2023-05-18] MEDS: AUGMENTIN 875 MG TAB PO SCH ×2 (09:45→20:31)
[2023-05-18] MEDS: SIMETHICONE 80MG CHEW TAB PO SCH ×3 (09:45→20:30)
[2023-05-18] MEDS: TORSEMIDE 20 MG TAB PO SCH (09:45)
[2023-05-18] MEDS: ACETAMINOPHEN 500 MG TAB PO SCH ×3 (09:46→20:31)
[2023-05-18] MEDS: GABAPENTIN 100 MG CAP PO SCH ×3 (09:46→20:31)
[2023-05-18] MEDS: SPIRONOLACTONE 25 MG TAB PO SCH (09:46)
[2023-05-18] MEDS: METOPROLOL TART 50 MG TAB PO SCH (09:46)
[2023-05-18 14:00] VITALS: BP 150/66; TEMP 98.2; O2SAT 93
[2023-05-18] MEDS: SENNA 8.6 MG TAB (SENOKOT) PO SCH (20:17)
[2023-05-18] MEDS: RAMELTEON 8 MG TAB (ROZEREM) PO PRN (20:30)
[2023-05-18] MEDS: METOPROLOL TART 25 MG TABLET PO SCH (20:36)
[2023-05-18 20:39] VITALS: BP 147/65; TEMP 96.9; O2SAT 94
[2023-05-19] MEDS: REMEDY PHYTOPLEX Z-GUARD PASTE 113GM TUBE (FROM STOREROOM PRODUCT) TOP SCH ×6 (00:10→21:27)
[2023-05-19 06:00] VITALS: BP 139/64; TEMP 96.9; O2SAT 94
[2023-05-19] MEDS: oxyCODONE 5MG TAB PO SCH ×3 (06:06→21:24)
[2023-05-19] MEDS: DICLOFENAC EPOLAMINE 1.3% PATCH TOP SCH ×2 (06:06→18:04)
[2023-05-19] MEDS: COMBIVENT RESPIMAT 100-20MCG INHALER 4GM INH SCH ×2 (08:00→13:29)
[2023-05-19] MEDS: GABAPENTIN 100 MG CAP PO SCH ×3 (08:21→21:25)
[2023-05-19] MEDS: ACETAMINOPHEN 500 MG TAB PO SCH ×3 (08:21→21:27)
[2023-05-19] MEDS: APIXABAN 5 MG TAB (ELIQUIS) PO SCH ×2 (08:21→21:24)
[2023-05-19] MEDS: OMEPRAZOLE 20MG CAP PO SCH ×2 (08:21→21:25)
[2023-05-19] MEDS: AMIODARONE 200 MG TAB (PACERONE) PO SCH (08:22)
[2023-05-19] MEDS: SPIRONOLACTONE 25 MG TAB PO SCH (08:22)
[2023-05-19] MEDS: TORSEMIDE 20 MG TAB PO SCH (08:22)
[2023-05-19] MEDS: METOPROLOL TART 50 MG TAB PO SCH (08:22)
[2023-05-19] MEDS: SIMETHICONE 80MG CHEW TAB PO SCH ×3 (08:22→21:24)
[2023-05-19] MEDS: AUGMENTIN 875 MG TAB PO SCH (08:22)
[2023-05-19] MEDS: MAGNESIUM OXIDE 400MG TAB (MAG-OX) PO SCH ×3 (08:22→21:25)
[2023-05-19] MEDS: MIRALAX *UNIT DOSE* 17GM PACKET PO SCH (08:23)
[2023-05-19] MEDS: DOCUSATE SOD LIQ 100MG/10ML UDC PO SCH ×2 (08:23→21:00)
[2023-05-19] MEDS: LIDOCAINE 5% (LIDODERM) PATCH TD SCH (08:23)
[2023-05-19] MEDS: guaiFENesin 200 MG TAB PO SCH ×4 (09:00→21:24)
[2023-05-19] MEDS ORDERED: ONDANSETRON 4MG ORAL DISINTEGRATING TAB PO ONE (10:50)
[2023-05-19 10:56] LABS: BASO # 0.1 10^3/uL (0.0-0.2); BASO % 0.5 % (0.0-1.0); EOS # 0.3 10^3/uL (0.0-0.5); EOS % 1.3 % (0.0-3.0); HEMATOCRIT 32.3 % (36.0-47.0); HEMOGLOBIN 10.5 g/dl (12.0-15.5); LYMPH # 1.5 10^3/uL (1.5-5.0); LYMPH % 7.3 % (24.0-44.0); MEAN CORPUSCULAR HEMOGLOBIN 33.1 pg (27.0-33.0); MEAN CORPUSCULAR HGB CONC 32.5 g/dl (32.0-36.5); MEAN CORPUSCULAR VOLUME 101.9 fl (80.0-96.0); MONO # 1.3 10^3/uL (0.0-0.8); MONO % 6.7 % (2.0-8.0); NEUTROPHILS # 16.5 10^3/uL (1.5-8.5); NEUTROPHILS % 83.3 % (36.0-66.0); PLATELET COUNT, AUTOMATED 378 10^3/uL (150-450); RED BLOOD COUNT 3.17 10^6/uL (4.00-5.40); WHITE BLOOD COUNT 19.8 10^3/uL (4.0-10.0)
[2023-05-19 11:19] LABS: BLOOD UREA NITROGEN 44 MG/DL (9-23); CALCIUM LEVEL 7.4 MG/DL (8.3-10.6); CARBON DIOXIDE LEVEL 30 MMOL/L (20-31); CHLORIDE LEVEL 91 MMOL/L (98-107); CREATININE FOR GFR 0.94 MG/DL (0.55-1.30); GLOMERULAR FILTRATION RATE > 60.0 (>32); GLUCOSE, FASTING 123 MG/DL (74-106); POTASSIUM SERUM 4.8 MMOL/L (3.5-5.1); SODIUM LEVEL 127 MMOL/L (136-145)
[2023-05-19] MEDS ORDERED: ALBUTEROL SULFATE 2.5MG/0.5ML INH NEB SOLN NEB ONE (12:50)
[2023-05-19] MEDS: PIPERACILLIN/TAZOBACTAM SOD 4.5 GM in D5W MINI-BAG PLUS 50 ML IV SCH ×2 (13:12→18:49)
[2023-05-19 14:00] VITALS: BP 138/80; TEMP 98.3; O2SAT 93
[2023-05-19 20:00] VITALS: BP 123/59; TEMP 98.2; O2SAT 94
[2023-05-19 20:39] LABS: BASO % 0.1 % (0.0-1.0); HEMATOCRIT 27.2 % (36.0-47.0); LYMPH # 1.3 10^3/uL (1.5-5.0); LYMPH % 6.3 % (24.0-44.0); MEAN CORPUSCULAR HEMOGLOBIN 33.1 pg (27.0-33.0); MEAN CORPUSCULAR HGB CONC 33.1 g/dl (32.0-36.5); MONO # 1.2 10^3/uL (0.0-0.8); MONO % 5.9 % (2.0-8.0); NEUTROPHILS # 17.7 10^3/uL (1.5-8.5); NEUTROPHILS % 86.9 % (36.0-66.0); PLATELET COUNT, AUTOMATED 322 10^3/uL (150-450); RED BLOOD COUNT 2.72 10^6/uL (4.00-5.40); WHITE BLOOD COUNT 20.4 10^3/uL (4.0-10.0)
[2023-05-19] MEDS: SENNA 8.6 MG TAB (SENOKOT) PO SCH (21:00)
[2023-05-19] MEDS: METOPROLOL TART 25 MG TABLET PO SCH (21:26)
[2023-05-20] MEDS: PIPERACILLIN/TAZOBACTAM SOD 4.5 GM in D5W MINI-BAG PLUS 50 ML IV SCH ×2 (00:59→06:15)
[2023-05-20] MEDS: REMEDY PHYTOPLEX Z-GUARD PASTE 113GM TUBE (FROM STOREROOM PRODUCT) TOP SCH ×6 (00:59→20:09)
[2023-05-20 05:56] LABS: BASO # 0.1 10^3/uL (0.0-0.2); BASO % 0.4 % (0.0-1.0); EOS # 0.2 10^3/uL (0.0-0.5); EOS % 0.9 % (0.0-3.0); HEMATOCRIT 28.2 % (36.0-47.0); HEMOGLOBIN 9.2 g/dl (12.0-15.5); LYMPH % 10.1 % (24.0-44.0); MEAN CORPUSCULAR HEMOGLOBIN 32.7 pg (27.0-33.0); MEAN CORPUSCULAR HGB CONC 32.6 g/dl (32.0-36.5); MEAN CORPUSCULAR VOLUME 100.4 fl (80.0-96.0); MONO % 9.2 % (2.0-8.0); NEUTROPHILS # 15.8 10^3/uL (1.5-8.5); NEUTROPHILS % 78.6 % (36.0-66.0); PLATELET COUNT, AUTOMATED 339 10^3/uL (150-450); RED BLOOD COUNT 2.81 10^6/uL (4.00-5.40)
[2023-05-20 06:00] VITALS: BP 118/56; TEMP 97.9; O2SAT 97
[2023-05-20] MEDS: oxyCODONE 5MG TAB PO SCH ×2 (06:14→13:24)
[2023-05-20] MEDS: DICLOFENAC EPOLAMINE 1.3% PATCH TOP SCH ×2 (06:15→18:08)
[2023-05-20 06:18] LABS: CALCIUM LEVEL 7.3 MG/DL (8.3-10.6); CREATININE FOR GFR 1.14 MG/DL (0.55-1.30); GLOMERULAR FILTRATION RATE 48.3 (>32); POTASSIUM SERUM 5.1 MMOL/L (3.5-5.1)
[2023-05-20 06:21] LABS: MONO # 1.8 10^3/uL (0.0-0.8)
[2023-05-20] MEDS: COMBIVENT RESPIMAT 100-20MCG INHALER 4GM INH SCH ×3 (07:31→19:56)
[2023-05-20] MEDS: DOCUSATE SOD LIQ 100MG/10ML UDC PO SCH ×2 (09:00→20:08)
[2023-05-20] MEDS: MIRALAX *UNIT DOSE* 17GM PACKET PO SCH (09:00)
[2023-05-20] MEDS: LIDOCAINE 5% (LIDODERM) PATCH TD SCH (09:08)
[2023-05-20] MEDS ORDERED: ALBUTEROL 90 MCG/ACT 8GM HFA INHALER INH PRN (09:30)
[2023-05-20] MEDS: APIXABAN 5 MG TAB (ELIQUIS) PO SCH ×2 (09:48→20:09)
[2023-05-20] MEDS: MAGNESIUM OXIDE 400MG TAB (MAG-OX) PO SCH ×3 (09:48→20:10)
[2023-05-20] MEDS: SIMETHICONE 80MG CHEW TAB PO SCH ×3 (09:48→20:13)
[2023-05-20] MEDS: GABAPENTIN 100 MG CAP PO SCH ×3 (09:49→20:10)
[2023-05-20] MEDS: guaiFENesin 200 MG TAB PO SCH ×3 (09:49→20:13)
[2023-05-20] MEDS: OMEPRAZOLE 20MG CAP PO SCH ×2 (09:49→20:15)
[2023-05-20] MEDS: ACETAMINOPHEN 500 MG TAB PO SCH ×3 (09:49→20:09)
[2023-05-20] MEDS: METOPROLOL TART 50 MG TAB PO SCH (09:50)
[2023-05-20] MEDS: AMIODARONE 200 MG TAB (PACERONE) PO SCH (09:50)
[2023-05-20] MEDS ORDERED: TOLVAPTAN 7.5 MG HALF-TAB PO ONE ×2 (10:00→17:10)
[2023-05-20] MEDS: PIPERACILLIN/TAZOBACTAM SOD 3.375 GM in D5W MINI-BAG PLUS 50 ML IV SCH ×2 (13:22→18:08)
[2023-05-20 14:00] VITALS: BP 116/56; TEMP 97.3; O2SAT 94
[2023-05-20] MEDS ORDERED: oxyCODONE 5MG TAB PO PRN (16:00)
[2023-05-20 16:57] LABS: BASO # 0.1 10^3/uL (0.0-0.2); BASO % 0.2 % (0.0-1.0); EOS # 0.1 10^3/uL (0.0-0.5); EOS % 0.5 % (0.0-3.0); HEMATOCRIT 29.7 % (36.0-47.0); HEMOGLOBIN 9.8 g/dl (12.0-15.5); LYMPH # 1.5 10^3/uL (1.5-5.0); LYMPH % 6.5 % (24.0-44.0); MEAN CORPUSCULAR HEMOGLOBIN 32.8 pg (27.0-33.0); MEAN CORPUSCULAR VOLUME 99.3 fl (80.0-96.0); MONO % 8.2 % (2.0-8.0); NEUTROPHILS # 18.7 10^3/uL (1.5-8.5); NEUTROPHILS % 83.7 % (36.0-66.0); PLATELET COUNT, AUTOMATED 349 10^3/uL (150-450); RED BLOOD COUNT 2.99 10^6/uL (4.00-5.40); WHITE BLOOD COUNT 22.4 10^3/uL (4.0-10.0)
[2023-05-20 17:16] LABS: MONO # 1.8 10^3/uL (0.0-0.8)
[2023-05-20 20:00] VITALS: BP 128/59; TEMP 97.7; O2SAT 91
[2023-05-20] MEDS: SENNA 8.6 MG TAB (SENOKOT) PO SCH (20:13)
[2023-05-20] MEDS: METOPROLOL TART 25 MG TABLET PO SCH (20:16)
[2023-05-21] MEDS: REMEDY PHYTOPLEX Z-GUARD PASTE 113GM TUBE (FROM STOREROOM PRODUCT) TOP SCH ×3 (01:00→09:12)
[2023-05-21] MEDS: PIPERACILLIN/TAZOBACTAM SOD 3.375 GM in D5W MINI-BAG PLUS 50 ML IV SCH ×3 (01:23→14:11)
[2023-05-21 06:00] VITALS: BP 126/58; TEMP 97.5; O2SAT 95
[2023-05-21] MEDS: DICLOFENAC EPOLAMINE 1.3% PATCH TOP SCH (06:36)
[2023-05-21 07:30] LABS: BASO # 0.1 10^3/uL (0.0-0.2); BASO % 0.2 % (0.0-1.0); EOS # 0.2 10^3/uL (0.0-0.5); EOS % 0.8 % (0.0-3.0); HEMATOCRIT 30.1 % (36.0-47.0); HEMOGLOBIN 10.1 g/dl (12.0-15.5); LYMPH # 2.2 10^3/uL (1.5-5.0); LYMPH % 9.1 % (24.0-44.0); MEAN CORPUSCULAR HEMOGLOBIN 32.8 pg (27.0-33.0); MEAN CORPUSCULAR HGB CONC 33.6 g/dl (32.0-36.5); MEAN CORPUSCULAR VOLUME 97.7 fl (80.0-96.0); MONO % 7.6 % (2.0-8.0); NEUTROPHILS # 19.6 10^3/uL (1.5-8.5); NEUTROPHILS % 81.4 % (36.0-66.0); PLATELET COUNT, AUTOMATED 361 10^3/uL (150-450); RED BLOOD COUNT 3.08 10^6/uL (4.00-5.40)
[2023-05-21] MEDS: COMBIVENT RESPIMAT 100-20MCG INHALER 4GM INH SCH ×2 (07:36→13:07)
[2023-05-21 07:55] LABS: MONO # 1.8 10^3/uL (0.0-0.8)
[2023-05-21 08:00] LABS: CALCIUM LEVEL 7.1 MG/DL (8.3-10.6); CREATININE FOR GFR 1.2 MG/DL (0.55-1.30); GLOMERULAR FILTRATION RATE 45.6 (>32); POTASSIUM SERUM 4.8 MMOL/L (3.5-5.1)
[2023-05-21] MEDS: DOCUSATE SOD LIQ 100MG/10ML UDC PO SCH (09:00)
[2023-05-21] MEDS: MIRALAX *UNIT DOSE* 17GM PACKET PO SCH (09:00)
[2023-05-21] MEDS: APIXABAN 5 MG TAB (ELIQUIS) PO SCH (09:06)
[2023-05-21] MEDS: guaiFENesin 200 MG TAB PO SCH (09:06)
[2023-05-21] MEDS: LIDOCAINE 5% (LIDODERM) PATCH TD SCH (09:06)
[2023-05-21] MEDS: GABAPENTIN 100 MG CAP PO SCH (09:07)
[2023-05-21] MEDS: OMEPRAZOLE 20MG CAP PO SCH (09:09)
[2023-05-21 09:11] VITALS: BP 126/58
[2023-05-21] MEDS: ACETAMINOPHEN 500 MG TAB PO SCH (09:11)
[2023-05-21] MEDS: METOPROLOL TART 50 MG TAB PO SCH (09:11)
[2023-05-21] MEDS: SIMETHICONE 80MG CHEW TAB PO SCH (09:11)
[2023-05-21] MEDS: AMIODARONE 200 MG TAB (PACERONE) PO SCH (09:11)
[2023-05-21] MEDS: MAGNESIUM OXIDE 400MG TAB (MAG-OX) PO SCH (09:11)
[2023-05-21 09:46] LABS: C REACTIVE PROTEIN QUANTITATIV 27.7 MG/DL (<1.0)
[2023-05-21 09:47] LABS: ERYTHROCYTE SEDIMENTATION RATE 113 mm/hr (0-30)
[2023-05-21 09:50] LABS: PROCALCITONIN 1.34 ng/ml
[2023-05-21] MEDS ORDERED: ZOSY1SOL5 IV (11:39)
[2023-05-21] MEDS ORDERED: BACI1CAP PO (11:39)
[2023-05-21] MEDS ORDERED: VANC1PLA6 IV (11:39)
[2023-05-21] MEDS ORDERED: FUROSEMIDE injection 250 MG in D5W 225 ML IV SCH (11:55)
[2023-05-21] MEDS ORDERED: VANCOMYCIN HCL 1,000 MG, VIAL MATE ADAPTER 1 EACH in D5W 250 ML IV SCH (12:00)
[2023-05-21 12:46] LABS: CALCIUM LEVEL 6.9 MG/DL (8.3-10.6); CREATININE FOR GFR 1.19 MG/DL (0.55-1.30); POTASSIUM SERUM 4.9 MMOL/L (3.5-5.1)
[2023-05-21 14:22] LABS: FREE T4 1.17 NG/DL (0.89-1.76)
[2023-05-21 14:24] LABS: THYROID STIMULATING HORMONE 6.766 uIU/ML (0.55-4.78)
== END 2023-05-21 12:30 | disposition short-term general hospital (02) | DRG 559 ==
LOC: M PM&R 13:30
PROVIDERS: ADMIT Physical Medicine & Rehabilitation; ATTEND Physical Medicine & Rehabilitation
DX: S12.500D Unspecified displaced fracture of sixth cervical vertebra, subsequent encounter for fracture with routine healing (principal); J18.9 Pneumonia, unspecified organism; J69.0 Pneumonitis due to inhalation of food and vomit; J96.01 Acute respiratory failure with hypoxia; E87.1 Hypo-osmolality and hyponatremia; J90 Pleural effusion, not elsewhere classified; I50.22 Chronic systolic (congestive) heart failure; S42.302D Unspecified fracture of shaft of humerus, left arm, subsequent encounter for fracture with routine healing; S82.141D Displaced bicondylar fracture of right tibia, subsequent encounter for closed fracture with routine healing; S82.142D Displaced bicondylar fracture of left tibia, subsequent encounter for closed fracture with routine healing; S82.402D Unspecified fracture of shaft of left fibula, subsequent encounter for closed fracture with routine healing; S82.002D Unspecified fracture of left patella, subsequent encounter for closed fracture with routine healing; S22.20XD Unspecified fracture of sternum, subsequent encounter for fracture with routine healing; S22.31XD Fracture of one rib, right side, subsequent encounter for fracture with routine healing; E11.9 Type 2 diabetes mellitus without complications; R26.89 Other abnormalities of gait and mobility; I48.91 Unspecified atrial fibrillation; L89.152 Pressure ulcer of sacral region, stage 2; Z79.01 Long term (current) use of anticoagulants; I10 Essential (primary) hypertension; R32 Unspecified urinary incontinence; S06.6X0D Traumatic subarachnoid hemorrhage without loss of consciousness, subsequent encounter; S06.5X0D Traumatic subdural hemorrhage without loss of consciousness, subsequent encounter; E04.2 Nontoxic multinodular goiter; E83.42 Hypomagnesemia; D64.9 Anemia, unspecified; E87.6 Hypokalemia; Z79.899 Other long term (current) drug therapy